=== PATIENT | male | born 1945 ===

== ENCOUNTER 2019-06-29 19:43 | Emergency (ER) | payer MEDICARE ==
[2019-06-29 20:32] LABS: ABSOLUTE EOSINOPHILS # (AUTO) 0.1 10^3/uL (0.0-0.6); ABSOLUTE LYMPHOCYTES (AUTO) 0.4 10^3/uL (0.5-4.7); ABSOLUTE MONOCYTES (AUTO) 0.3 10^3/uL (0.1-1.4); ABSOLUTE NEUT (AUTO) 3.9 10^3/uL (1.7-8.2); BASOPHILS % (AUTO) 0.2 % (0-2); HEMATOCRIT 36.3 % (37.9-51.0); HEMOGLOBIN 12.1 g/dL (13.5-17.0); LYMPHOCYTES % (AUTO) 8.1 % (13-45); MEAN CORPUSCULAR HEMOGLOBIN 31.1 pg (27.0-33.4); MEAN CORPUSCULAR HGB CONC 33.4 g/dL (32.0-36.0); MEAN CORPUSCULAR VOLUME 93 fl (80-97); MONOCYTES % (AUTO) 5.9 % (3-13); PLATELET COUNT 291 10^3/uL (150-450); RED CELL DISTRIBUTION WIDTH 13.4 % (11.5-14.0); SEGMENTED NEUTROPHILS % (AUTO) 82.8 % (42-78); TOTAL CELLS COUNTED % (AUTO) 100 %; VENOUS BLOOD BASE EXCESS -1.7 mmol/L; VENOUS BLOOD HCO3 26.5 mmol/L (20-32); VENOUS BLOOD PCO2 61.2 mmHg (35-63); VENOUS BLOOD PH 7.26 (7.30-7.42); WHITE BLOOD COUNT 4.7 10^3/uL (4.0-10.5)
--- NOTE | 2019-06-29 20:47 | RADIOLOGY REPORT (SQ) ---
EXAM DESCRIPTION: XR CHEST 1 VIEW COMPLETED DATE/TME: 06/29/2019 20:00 CLINICAL HISTORY: 74 years Male sob COMPARISON: None. FINDINGS: The cardiomediastinal silhouette appears unremarkable. No consolidating infiltrates or pleural effusions. No pneumothorax. Linear area of atelectasis in the right lung base. IMPRESSION: Linear atelectasis in the right lung base
[2019-06-29 20:49] LABS: ALBUMIN 3.6 g/dL (3.5-5.0); ALKALINE PHOSPHATASE 69 U/L (38-126); ASPARTATE AMINO TRANSFERASE 31 U/L (17-59); BILIRUBIN,TOTAL 0.4 mg/dL (0.2-1.3); BLOOD UREA NITROGEN 28 mg/dL (7-20); CALCIUM 9.2 mg/dL (8.4-10.2); CARBON DIOXIDE 27 mmol/L (22-30); CHLORIDE 105 mmol/L (98-107); GLUCOSE 200 mg/dL (75-110); POTASSIUM 5.3 mmol/L (3.6-5.0); TOTAL PROTEIN 6.1 g/dL (6.3-8.2)
[2019-06-29 20:56] LABS: ANION GAP 4 (5-19)
[2019-06-29] MEDS ORDERED: NITROGLYCERIN 2% OINTMENT 1 GM PACKET TP ONE (21:32)
[2019-06-29] MEDS ORDERED: FUROSEMIDE INJ/PF 20 MG/2 ML SDV IV ONE (21:32)
--- NOTE | 2019-06-29 21:37 | ER Document Report ---
ED General - General Chief Complaint: Respiratory Distress Stated Complaint: SHORTNESS OF BREATH Time Seen by Provider: 06/29/19 21:14 - HPI Notes: Chief complaint: Breathing difficulty HPI: 74-year-old male with longstanding history of oxygen dependent COPD and obstructive sleep apnea for which he uses nocturnal CPAP reports increased difficulty with his breathing for 3 to 4 days. He denies fever. He denies sputum production. He denies chest pain. Denies known exposure to COVID 19 and denies any recent travel outside the area. Notes chronic edema of both lower legs perhaps a little worse in the last few days. Says he is fully compliant with his medications. Patient has a previous history of renal transplant perf ormed at [facility] he is on chronic antirejection medications. He also has a pacemaker. EXTREMELY POOR HISTORIAN - Related Data Allergies/Adverse Reactions: No Known Allergies Allergy (Verified 06/29/19 21:00) Past Medical History - General Information source: Patient, Relative - Social History Smoking Status: Former Smoker Chew tobacco use (# tins/day): No Frequency of alcohol use: None Drug Abuse: None Family History: Reviewed & Not Pertinent Patient has homicidal ideation: No - Past Medical History Cardiac Medical History: Reports: Other - Pacemaker Pulmonary Medical History: Reports: Hx COPD Endocrine Medical History: Reports: Hx Diabetes Mellitus Type 2 Renal/ Medical History: Reports: Other - Previous renal transplant at [facility] Past Surgical History: Reports: Hx Kidney (Renal Surgery) - transplant, Hx Orthopedic Surgery - lt knee replacement, Hx Pacemaker Review of Systems - Review of Systems Notes: Constitutional: Negative for fever. HENT: Negative for sore throat. Eyes: Negative for visual changes. Cardiovascular: Negative for chest pain. Respiratory: As per HPI. Gastrointestinal: Negative for abdominal pain, vomiting or diarrhea. Genitourinary: Negative for dysuria. Musculoskeletal: Negative for back pain. Skin: Negative for rash. Neurological: Negative for headaches, weakness or numbness. 10 point ROS negative except as marked above and in HPI. Physical Exam - Vital signs Vitals: Resp Pulse Ox 14 100 06/29/19 19:47 06/29/19 19:47 - Notes Notes: GENERAL: Chronically ill appearing elderly male breathing relatively comfortable with assistance of BiPAP. SKIN: Good turgor no rashes. HEAD: Normocephalic atraumatic. EYES: PERRLA. EOMI. Conjunctivae and sclerae clear. EARS: CANALS AND TMS CLEAR. NOSE: CLEAR. MOUTH: Moist mucosa. Good dentition. No stridor or edema. No drooling. NECK: Supple. No masses or thyromegaly. No adenopathy. Carotids 2+ without bruits. No JVD. BACK: Symmetrical without tenderness. CHEST: Diminished breath sounds both bases. Scattered faint wheezes bilaterally. L. HEART: Regular rhythm. No murmur gallop or rub. ABDOMEN: Soft nontender without masses, organomegaly or rebound. Bowel sounds normally active. No bruits. GENITALIA: Deferred. EXTREMITIES: 3+ bilateral pretibial edema. No calf tenderness. Cap refill less than 1.5 seconds. Dorsalis pedis and posterior tibial pulses 3+ and symmetrical. NEUROLOGICAL: GCS 15. Alert and oriented x3. Fluent speech. Cranial nerves II through XII intact. Sensorimotor and cerebellar normal. Normal tone. PSYCHIATRIC: Appropriate affect. Course - Re-evaluation Re-evalutation: 06/29/19 21:46 Patient came in on low-dose IV nitroglycerin infusion started by EMS. This is been stopped and we transitioned him to IV Lasix and transdermal Nitropaste. He remains on BiPAP. ABG pending. His troponin is marginally elevated. Will get a second troponin at 3 hours. If this remains the same was trending downward he can possibly be admitted locally. If not he will need to be transferred back to [facility]. 06/30/19 01:36 Patient remains free of any chest pain. He remains hemodynamically stable. Respiratory status is improved. We are going to try to wean him from BiPAP. His second troponin has ruled in for acute non-STEMI with a value of 0.135. Findings have been discussed with Dr. Mary Dunne with the cardiology service at [facility]. They are agreeable to take the patient in transfer if we can successfully wean him from BiPAP. This man has received aspirin. We are going to repeat an EKG at this time and he is also being heparinized. - Vital Signs Vital signs: Temp Pulse Resp BP Pulse Ox 98.6 F 72 16 149/75 H 97 06/29/19 19:49 06/29/19 19:49 06/30/19 01:26 06/30/19 00:41 06/30/19 01:26 - Laboratory Result Diagrams: 06/29/19 20:14 06/29/19 20:14 Laboratory results interpreted by me: 06/29/19 06/29/19 06/29/19 20:14 20:14 20:14 RBC 3.90 L Hgb 12.1 L Hct 36.3 L Lymph % (Auto) 8.1 L Absolute Lymphs (auto) 0.4 L Seg Neutrophils % 82.8 H ABG pO2 ABG Total CO2 ABG O2 Saturation VBG pH 7.26 L Sodium 136.1 L Potassium 5.3 H Anion Gap 4 L BUN 28 H Glucose 200 H NT-Pro-B Natriuret Pep Total Protein 6.1 L 06/29/19 06/29/19 20:14 21:58 RBC Hgb Hct Lymph % (Auto) Absolute Lymphs (auto) Seg Neutrophils % ABG pO2 124.2 H ABG Total CO2 22.0 L ABG O2 Saturation 98.3 H VBG pH Sodium Potassium Anion Gap BUN Glucose NT-Pro-B Natriuret Pep 3460 H Total Protein - Diagnostic Test Radiology reviewed: Reports reviewed - Portable chest x-ray per radiologist: Bibasilar atelectasis. Critical Care Note - Critical Care Note Total time excluding time spent on procedures (mins): 35 - BiPAP, IV Lasix Discharge - Discharge Clinical Impression: Acute on chronic respiratory failure, Status post renal transplant, Acute non- STEMI COPD (chronic obstructive pulmonary disease) Qualifiers: COPD type: COPD with acute exacerbation Qualified Code(s): J44.1 - Chronic obstructive pulmonary disease with (acute) exacerbation Condition: Serious Disposition: [facility]
[2019-06-29 21:57] LABS: INTERNATIONAL RATION (INR) 1.05; PARTIAL THROMBOPLASTIN TIME 33.7 SEC (23.5-35.8); PROTHROMBIN TIME 13.7 SEC (11.4-15.4)
[2019-06-29 22:38] LABS: APPEARANCE,URINE CLEAR; BILIRUBIN,URINE NEGATIVE (NEGATIVE); COLOR,URINE STRAW; GLUCOSE, URINE NEGATIVE (NEGATIVE); KETONES,URINE NEGATIVE (NEGATIVE); LEUKOCYTE ESTERASE,URINE NEGATIVE (NEGATIVE); NITRITE,URINE NEGATIVE (NEGATIVE); PROTEIN,URINE NEGATIVE (NEGATIVE); UROBILINOGEN,URINE NEGATIVE mg/dL (<2.0)
[2019-06-29 22:39] LABS: ARTERIAL BLOOD BASE EXCESS -4.2 mmol/L; ARTERIAL BLOOD FIO2 35%; ARTERIAL BLOOD H2CO3 1.15 mmol/L (1.05-1.35); ARTERIAL BLOOD HCO3 20.8 mmol/L (20-24); ARTERIAL BLOOD O2 SATURATION 98.3 % (94-98); ARTERIAL BLOOD PCO2 38.1 mmHg (35-45); ARTERIAL BLOOD PH 7.36 (7.35-7.45); ARTERIAL BLOOD PO2 124.2 mmHg (80-100)
[2019-06-30] MEDS ORDERED: ASPIRIN 81 MG TABLET, CHEWABLE PO ONE (01:13)
[2019-06-30] MEDS ORDERED: HEPARIN SOD (PORCINE) 1,000 UNIT/ML 10 ML VIAL IV ONE (01:30)
[2019-06-30] MEDS ORDERED: HEPARIN SODIUM,PORCINE/D5W 25,000 UNIT/250 ML RTUINJ IV PRN (01:30)
[2019-06-30] MEDS ORDERED: ENOXAPARIN SODIUM INJ 100 MG/1 ML DISP.SYRIN SUBCUT ONE ×2 (05:29→05:30)
--- NOTE | 2019-06-30 08:00 | ER Document Report ---
Doctor's Note Notes: 06/30/19 07:58 Patient was signed out to me pending transfer to [facility] for an STEMI/CHF. Was notified by nursing that patient's wanted patient to go to [facility] instead because patient's kennel aide they normally see [facility] and told him not to go there and to follow-up at [facility] if they need to have acute care. Patient's was initially upset that she had not spoken to a physician in the ED. upon hearing this a call to patient's and had long discussion with patient's permission regarding patient's status. Patient and felt reassured, were in agreement with plan to transfer to [facility]. Patient was accepted for transfer to [facility] by Dr. Luna. Patient's transfer team is currently here and patient continues to feel well has no current chest pain and has been stable for the last several hours in the ED.
[2019-06-30 08:01] VITALS: BP 153/77
--- NOTE | 2019-07-01 08:42 | EKG REPORT ---
SEVERITY:- ABNORMAL ECG - VENTRICULAR-PACED COMPLEXES NONSPECIFIC IVCD WITH LAD LVH WITH SECONDARY REPOLARIZATION ABNORMALITY : Confirmed by: Julio Novak 01-Jul-2019 08:41:49
== END 2019-06-30 08:10 | disposition short-term general hospital (02) ==
LOC: ER 19:43
DX: J96.20 Acute and chronic respiratory failure, unspecified whether with hypoxia or hypercapnia (principal); I21.4 Non-ST elevation (NSTEMI) myocardial infarction; J44.1 Chronic obstructive pulmonary disease with (acute) exacerbation; Z94.0 Kidney transplant status; R60.0 Localized edema; Z99.81 Dependence on supplemental oxygen; Z79.899 Other long term (current) drug therapy; Z87.891 Personal history of nicotine dependence; E11.9 Type 2 diabetes mellitus without complications
CPT/HCPCS: 93005; 99285; 96372; 96375; 96365; 96366; 36415; 82803 ×2; 85025; 85610; 85730; 80053; 81001; 84484; 83880; 71045; 93010; 36600; 94660 ×2; J1644 ×2; A9270 ×2; J1940; J1650